=== PATIENT | female | born 1995 | race Caucasian/White ===

== ENCOUNTER 2022-06-16 22:42 | Emergency (ER) | payer OTHER ==
[~2022-06-16] VITALS: Ht 162.6 cm; Wt 90.7 kg
[2022-06-16 23:01] VITALS: BP 131/77
--- NOTE | 2022-06-16 23:06 | NUR ---
TO LOBBY FOLLOWING TRIAGE
[2022-06-17] MEDS ORDERED: KETOROLAC 30 MG/ML VIAL IM ONE (00:55)
--- NOTE | 2022-06-17 01:14 | NUR ---
Dr. Martin examining patient.
[2022-06-17] MEDS ORDERED: NAPR-54 PO (01:26)
[2022-06-17] MEDS ORDERED: ONDA-188 PO (01:26)
[2022-06-17 01:30] VITALS: BP 131/77
--- NOTE | 2022-06-17 01:30 | NUR ---
Patient discharged with v/s stable. Written and verbal after care instructions given and explained by Dr. Martin. Patient alert, oriented and verbalized understanding of instructions. Ambulatory with steady gait. All questions addressed prior to discharge. ID band removed. Patient advised to follow up with PMD. Rx of Naproxen and Zofran given. Patient educated on indication of medication including possible reaction and side effects. Opportunity to ask questions provided and answered.
== END 2022-06-17 01:30 | disposition home or self-care (01) ==
LOC: MED 22:42
DX: G44.86 Cervicogenic headache (principal); H57.10 Ocular pain, unspecified eye
CPT/HCPCS: 96372; 99283; J1885

== ENCOUNTER 2024-06-23 18:21 | Emergency (ER) | payer OTHER ==
[~2024-06-23] VITALS: Ht 162.6 cm; Wt 97.5 kg
[~2024-06-23 18:21] MED LIST: NAPR-337 PO; ONDA-188 PO
[2024-06-23 19:13] VITALS: BP 108/59; PULSE 85; RESP 15; TEMP 98.3; O2SAT 98
[2024-06-23 19:30] VITALS: O2SAT 98
[2024-06-23 21:37] LABS: BASOPHILS % (AUTO) 0.3 % (0.0-2.0); EOSINOPHILS # (AUTO) 0.1 K/uL (0-0.4); EOSINOPHILS % (AUTO) 1.2 % (0.0-4.0); HEMATOCRIT 38.8 % (36-48); HEMOGLOBIN 13.1 g/dL (12.0-16.0); LYMPHOCYTES # (AUTO) 2.7 K/uL (2.5-16.5); LYMPHOCYTES % (AUTO) 25.5 % (20.5-51.1); MEAN CORPUSCULAR HEMOGLOBIN 28 pg (27-31); MEAN CORPUSCULAR HGB CONC 34 g/dL (33-37); MEAN CORPUSCULAR VOLUME 83.4 fL (80-94); MONOCYTES # (AUTO) 0.6 K/uL (0.8-1.0); MONOCYTES % (AUTO) 6.1 % (1.7-9.3); NEUTROPHILS # (AUTO) 7.1 K/uL (1.8-7.7); NEUTROPHILS % (AUTO) 66.9 % (42.2-75.2); PLATELET COUNT (AUTO) 292 K/uL (140-450); RED BLOOD CELL COUNT(AUTO) 4.65 MIL/uL (4.20-5.40); RED CELL DISTRIBUTION WIDTH 13.6 % (11.6-13.7); WHITE BLOOD COUNT (AUTO) 10.6 K/uL (4.8-10.8)
[2024-06-23 22:07] LABS: ALBUMIN 3.7 g/dL (3.4-5.0); CARBON DIOXIDE 27.3 mmol/L (21-32); CREATININE 0.8 mg/dL (0.6-1.3); POTASSIUM 4.3 mmol/L (3.5-5.1); TOTAL BILIRUBIN 0.3 mg/dL (0.0-1.0); TOTAL PROTEIN, SERUM 7.4 g/dL (6.4-8.2)
== END 2024-06-23 23:52 | disposition home or self-care (01) ==
LOC: MED 18:21
DX: O99.411 Diseases of the circulatory system complicating pregnancy, first trimester (principal); R07.89 Other chest pain; R00.2 Palpitations; O26.811 Pregnancy related exhaustion and fatigue, first trimester; R42 Dizziness and giddiness; Z3A.01 Less than 8 weeks gestation of pregnancy; Z79.899 Other long term (current) drug therapy
CPT/HCPCS: 36415; 80053; 81025; 84702; 85025; 93005; 99284